=== PATIENT | male | born 1995 | race Caucasian/White ===

== ENCOUNTER 2018-08-04 01:15 | Emergency (ER) | payer OTHER ==
[~2018-08-04] VITALS: Ht 180.3 cm; Wt 108.7 kg
[2018-08-04 01:20] VITALS: Ht 180.3 cm; Wt 108.7 kg
[2018-08-04] MEDS ORDERED: KETOROLAC 60 MG INJ IM STA (04:24)
[2018-08-04] MEDS ORDERED: CLIN300C10 PO (04:30)
[2018-08-04] MEDS ORDERED: PRED20TA PO (04:30)
[2018-08-04] MEDS ORDERED: IBUP-1542 PO (04:35)
--- NOTE | 2018-08-04 04:35 | ERD ---
ER Documentation Chief Complaint Chief Complaint throat pain feeling having an abscess - pt able to talk- diff swallowing HPI 23-year-old male presents here to emergency department for complaints of throat pain for the last 3 days, was seen yesterday at an urgent care clinic, was given antibiotics, patient had history of peritonsillar abscess and was worried that he will get it again, patient is complaining of pain upon swallowing, throbbing pain, 6/10 scale, patient was given prednisone and clindamycin, only took 1 dose of it yet. Patient denies any fever or chills. Patient denies any stridor. ROS All systems reviewed and are negative except as per history of present illness. Medications Home Meds Reported Medications Prednisone* (Prednisone*) Unknown Strength Tab, PO DAILY for 4 Days, TAB 08/04/18 Clindamycin Hcl* (Clindamycin Hcl*) Unknown Strength Capsule, PO TID for 10 Days, CAP 08/04/18 Allergies Allergies: Coded Allergies: No Known Allergy (Unverified , 08/04/18) PMhx/Soc Medical and Surgical Hx: pt denies Medical Hx, pt denies Surgical Hx Hx Alcohol Use: No Hx Substance Use: No Hx Tobacco Use: No Smoking Status: Never smoker FmHx Family History: No diabetes, No coronary disease, No other Physical Exam Vitals Vital Signs Date Temp Pulse Resp B/P (MAP) Pulse Ox O2 O2 Flow FiO2 Time Delivery Rate 08/04/18 97.2 71 20 159/97 98 01:20 (117) Physical Exam GENERAL: The patient is well developed and appropriate for usual state of health, in no apparent distress. HEENT: Atraumatic. Ears: Normal tympanic membrane, no erythema or bulging. No ear canal swelling. No ear discharge. Nose: normal nasal turbinates, no erythema or swelling. Normal nasal discharge. Throat: oropharynx erythematous with tonsillar swelling and tonsillar exudates noted. No lymphadenopathy. CHEST: Clear to auscultation bilaterally. There are no rales, wheezes or rhonchi. HEART: Regular rate and rhythm. No murmurs, clicks, rubs or gallops. No S3 or S4. ABDOMEN: Soft, nontender and nondistended. Good bowel sounds. No rebound or guarding. No gross peritonitis. No gross organomegaly or masses. No Velazquez sign or McBurney point tenderness. BACK: No midline or flank tenderness. EXTREMITIES: Equal pulses bilaterally. There is no peripheral clubbing, cyanosis or edema. No focal swelling or erythema. Full range of motion. Grossly neurovascularly intact. NEURO: Alert and oriented. Cranial nerves 2-12 intact. Motor strength in all 4 extremities with 5/5 strength. Sensation grossly intact. Normal speech and gait. SKIN: There is no apparent rash or petechia. The skin is warm and dry. HEMATOLOGIC AND LYMPHATIC: There is no evidence of excessive bruising or lymphedema. No gross cervical, axillary, or inguinal lymphadenopathy. Results 24 hrs Current Medications Medications Dose Sig/Sae Start Time Status Last (Trade) Ordered Route PRN Stop Time Admin Dose Reason Admin Ketorolac 60 mg ONCE STAT 08/04/18 DC Tromethamine IM 04:24 (Toradol) 08/04/18 04:25 Patient was given medication for pain here in emergency department, after treatment, patient verbalized feeling much better. Patient's pain is improved. Procedures/MDM Medical decision making: Patient symptoms is likely consistent with acute [place] terial pharyngitis, most likely strep throat. Low suspicion for peritonsillar abscess, mononucleosis, no symptoms of epiglottitis, laryngitis. No oral airway obstruction noted. No symptoms of sepsis at this time. Patient appears well and is hemodynamically stable. Patient was advised to continue clindamycin and prednisone, Rx was given for ibuprofen, is advised to follow-up with primary care doctor in 2-3 days for reevaluation of symptoms. Patient is advised to do salt water gargles. Patient is advised to return to emergency department for worsening symptoms. Disposition: Home. Stable. Disclaimer: Inadvertent spelling and grammatical errors are likely due to EHR/dictation software use and do not reflect on the overall quality of patient care. Also, please note that the electronic time recorded on this note does not necessarily reflect the actual time of the patient encounter. Departure Diagnosis: Primary Impression: Acute bacterial pharyngitis Condition: Stable Patient Instructions: Pharyngitis, Strep (Presumed) DONTA DE LA ROSA NP Aug 04, 2018 04:35
[2018-08-04 04:55] VITALS: BP 141/82; PULSE 61; RESP 18
== END 2018-08-04 04:57 | disposition home or self-care (01) ==
LOC: FTE 01:15
DX: J02.9 Acute pharyngitis, unspecified (principal)
CPT/HCPCS: 96372; 99284; J1885